=== PATIENT | female | born 1960 | race Caucasian/White ===

== ENCOUNTER → 2023-08-01 11:05 | Outpatient (REF) | payer BC, SELFPAY | LOC: HWWDC 11:05 | PROVIDERS: ATTENDING PHYSICIAN Obstetrics & Gynecology; FAMILY PHYSICIAN Family Medicine | DX: Z12.31 Encounter for screening mammogram for malignant neoplasm of breast (principal) | CPT/HCPCS: 77063; 77067 ==

== ENCOUNTER 2024-02-04 13:49 | Emergency (ER) | payer BC, SELFPAY ==
[2024-02-04 13:51] VITALS: BP 180/109
--- NOTE | 2024-02-04 15:59 | ED.GENMED ---
History of Present Illness
General
Chief Complaint: Back Pain
Source: patient
Exam Limitations: none
Time Seen by Provider: 02/04/24 15:41
Nursing documentation reviewed up to this point in time: agreed with
History of Present Illness
History of Present Illness:
Patient to ED with complaint of back pain. States she was pulling something heavy today and then twisted. She has a history of back pain with numbness and tingling to her right arm. Follows with chiropractor and PCP. She was evaluated by
neurologist and MRI was recommended. She is scheduled for MRI on Monday. Currently participating in PT with good results. States since incident this AM she is in severe pain. Tearful, tense on exam. Reports pain radiates down entire back and
across to chest. No weakness in extremities. Brought to ED by spouse for eval. She did not take anything for pain, states she does not take pain meds at home.
Past History
Past History
ED Past Medical History: HTN and Hypothyroidism
Social History
Tobacco: Non-smoker
Alcohol: Occasional
Personal:
Living: with family
Review of Systems
Review of Systems
Allergies reviewed?: Yes
All Other Systems: ROS reviewed and negative except as documented in HPI and ROS
Constitutional: Reports no symptoms
EENT: Reports no symptoms
Respiratory: Reports no symptoms
Cardiac: Reports no symptoms
ABD/GI: Reports no symptoms
: Reports no symptoms
Musculoskeletal: Reports back pain (entire back)
Skin: Reports no symptoms
Neurological: Reports numbness (RUE. Has had in past, improved with PT, worse today after pulling heavy object.)
Psychiatric: Reports no symptoms
Phy Exam
General Physical Exam
General Presentation: well appearing and moderate distress
General age: appears stated age
General Skin: warm
General Habitus: normal
Neurological Exam
Neurological Exam: alert, oriented x3, CN II-XII intact, no motor deficits, no sensory deficits and speech normal
Reflexes
Reflexes: +3: Left patellar and +3: Right patellar
Musculoskeletal Exam
Musculoskeletal Exam: neuro vasc intact and other (limited ROM to mid and lower back due to pain)
Skin Exam
Skin Exam: normal color, warm/dry and no rash
Psychiatric Exam
Psychiatric Exam: normal mood/affect
Course
Orders/Labs/Results
Orders:
Orders
02/04/24 15:58
Ketorolac [Toradol] 15 mg IV NOW STA
diazePAM [Valium Injection] 2 mg IV NOW STA
02/04/24 16:20
Diazepam [Valium] 2 mg PO NOW STA
02/04/24 16:59
Lumbar Spine Complete, 4 View [CR Lumbar Spine Comp Min 4 Vw*] Urgent
Comment:
Reason For Exam: pain
Thoracic Spine 3 Views CR [CR Thoracic Spine 3 Views] Urgent
Comment:
Reason For Exam: pain
02/04/24 17:55
Acetaminophen [Tylenol] 1,000 mg .ROUTE .STK-MED ONE
02/04/24 17:57
Acetaminophen [Tylenol] 1,000 mg PO NOW STA
02/04/24 18:23
Cyclobenzaprine HCl [Flexeril] 10 mg .ROUTE .STK-MED ONE
02/04/24 18:25
Cyclobenzaprine HCl [Flexeril] 10 mg PO NOW STA
Vital Signs
Initial and Last Documented VS:
Initial Vital Signs
Temp Pulse Resp BP Pulse Ox
98.1 F 91 16 180/109 97
02/04/24 13:51 02/04/24 13:51 02/04/24 13:51 02/04/24 13:51 02/04/24 13:51
Last Documented Vital Signs
Temp Pulse Resp BP Pulse Ox
98.1 F 91 16 180/109 97
02/04/24 13:51 02/04/24 13:51 02/04/24 13:51 02/04/24 13:51 02/04/24 13:51
*Radiology
Radiology exam reviewed: radiology read reviewed
*Pulse Oximetry
Patient hypoxic: no
*Critical Care Note
Total Time (30-74mins, 75-104mins- exclusive of procedures): Not Applicable
ED Attending Note
-
Portions of this chart may have been created with voice recognition software.� Occasional wrong word or��sound alike� substitutions may have occurred due to the inherent limitations of voice recognition software.
Discharge Plan
Departure
Patient Disposition: Home (Routine Discharge)
Date of Disposition: 02/04/24
Time of Disposition: 17:54
Patient with high blood pressure during this ER visit?: No
Condition: Good
Covid-19: Not Applicable
Discharge Problem:
Strain of thoracic back region, Lumbar strain
Instructions: Low Back Pain (DC), Upper Back Pain (DC), Using Cold for Pain
Prescriptions:
New
cyclobenzaprine 10 mg tablet
10 mg PO TID PRN (Reason: muscle spasm) Qty: 12 0RF
No Action
thyroid (pork) [[place] Thyroid] 60 MG tablet
PO Daily
Referrals:
Perry Welch, DO [Family Provider] -
Interventions
Interventions:
*Risk Screen - Suicide Last Done: 02/04/24 16:33
*General Assessment Last Done: 02/04/24 16:33
*Neglect/Abuse Screening Last Done: 02/04/24 16:33
ED- Fall Risk Assessment Last Done: 02/04/24 16:30
*ED COVID-19 Vaccine History Last Done: 02/04/24 16:33
*Nursing Disposition Last Done: 02/04/24 18:37
ED-Musculoskeletal Assessment Last Done: 02/04/24 16:30
Discharge Date and Time
Discharge Date/Time: 02/04/24 18:38
Print Language: SIER[place] LEONEAN
Musculoskeletal Injury Exam
Musculoskeletal Injury Exam
Bilateral Middle Back:
Pain with Movement?: Moderate
Tender to palpation?: Moderate
Soft tissue swelling?: None
External deformity and angulation?: None
Joint effusion?: None
Contusion?: None
Hematoma-local bleeding into tissue?: None
Strain- Sprain- Tear (Connective tissue injury)?: Moderate
Crepitus with movement?: No
Joint instability?: No
Malalignment/deformity?: No
Range of motion: Limited
Distal skin color and temperature: normal-warm & good color
Capillary Refill: normal
Normal distal neurovascular exam?: Yes
Bilateral Lower Back:
Pain with Movement?: Moderate
Tender to palpation?: Mild
Soft tissue swelling?: None
External deformity and angulation?: None
Joint effusion?: None
Contusion?: None
Hematoma-local bleeding into tissue?: None
Strain- Sprain- Tear (Connective tissue injury)?: Moderate
Crepitus with movement?: No
Joint instability?: No
Malalignment/deformity?: No
Range of motion: Limited
Distal skin color and temperature: normal-warm & good color
Capillary Refill: normal
Normal distal neurovascular exam?: Yes
[2024-02-04] MEDS: VALIUM 2 MG PO (16:26)
[2024-02-04 16:34] VITALS: BMI 31.1
[2024-02-04] MEDS: TYLENOL 1000 MG PO (17:57)
[2024-02-04] MEDS: FLEXERIL 10 MG PO (18:25)
== END 2024-02-04 18:38 | disposition home or self-care (01) ==
LOC: EMR 13:49
PROVIDERS: EMERGENCY PHYSICIAN Emergency Medicine; FAMILY PHYSICIAN Family Medicine
DX: M54.50 Low back pain, unspecified (principal)
CPT/HCPCS: 99283; 72072; 72110

== ENCOUNTER → 2024-02-07 17:30 | Outpatient (REF) | payer BC, SELFPAY | LOC: PAVMRI 17:30 | PROVIDERS: ATTENDING PHYSICIAN Specialist; FAMILY PHYSICIAN Family Medicine | DX: M54.12 Radiculopathy, cervical region (principal) | CPT/HCPCS: 72141 ==

== ENCOUNTER → 2024-02-10 11:42 | Outpatient (REF) | payer BC, SELFPAY | LOC: MRI 3T 11:42 | PROVIDERS: ATTENDING PHYSICIAN Physician Assistant Medical; FAMILY PHYSICIAN Family Medicine | DX: M54.16 Radiculopathy, lumbar region (principal); R53.1 Weakness | CPT/HCPCS: 72148 ==

== ENCOUNTER → 2024-02-18 10:47 | Outpatient (REF) | payer BC, SELFPAY | LOC: MRI 3T 10:47 | PROVIDERS: ATTENDING PHYSICIAN Physician Assistant Medical; FAMILY PHYSICIAN Family Medicine | DX: M25.562 Pain in left knee (principal) | CPT/HCPCS: 73721 ==

== ENCOUNTER 2024-06-22 20:10 | Emergency (ER) | payer BC, SELFPAY ==
[2024-06-22 20:15] VITALS: BP 191/105
[2024-06-22] MEDS: BENADRYL 50 MG PO (20:19)
[2024-06-22 23:45] VITALS: BMI 32.0
[2024-06-23] VITALS: BP 163/88
--- NOTE | 2024-06-23 00:52 | ED.GENMED ---
History of Present Illness
General
Chief Complaint: Allergic Reaction
Source: patient
Exam Limitations: none
Time Seen by Provider: 06/23/24 00:36
History of Present Illness
History of Present Illness:
See MDM
Past History
Past History
ED Past Medical History: HTN and Hypothyroidism
Social History
Tobacco: Non-smoker
Alcohol: Occasional
Personal:
Living: with family
Phy Exam
Physical Exam
Physical Exam:
See MDM
Course
Orders/Labs/Results
Orders:
Orders
06/22/24 20:15
Diphenhydramine [Benadryl] 50 mg .ROUTE .STK-MED ONE
06/22/24 20:19
Diphenhydramine [Benadryl] 50 mg PO NOW STA
06/23/24 00:51
Electrocardiogram (*1) Urgent
Reason for Study: Chest Pain
EKG- Treatment ONCE
0.9% Sodium Chloride 1000 ml [Nss] 1,000 ml IV BOLUS
Lorazepam [Ativan] 0.5 mg IV NOW STA
06/23/24 00:52
CR Chest - 2 Views Urgent
Comment:
Reason For Exam: left side chest pain, cough
06/23/24 01:38
Complete Blood Count/With Diff Urgent
Comprehensive Metabolic Panel Urgent
Urinalysis Reflex To Culture Urgent
Date Specimen was Collected: 06/23/24
Time Specimen was Collected: 01:31
Urine Microscopic Reflex Cult Urgent
Abnormal Lab Results
06/23/24
01:38
WBC 4.2 L 10^3/uL
(4.8-10.8)
Sodium 132 L mmol/L
(135-145)
Chloride 94 L mmol/L
(98-107)
BUN 5 L mg/dl
(7-17)
Glucose 100 H mg/dl
(70-99)
Total Bilirubin 1.6 H mg/dl
(0.2-1.3)
ALT 87 H U/L
(0-35)
Urine Ketones 1+ A
(Negative)
Leukocyte Esterase Rfl Trace A
(Negative)
Urine Bacteria (Reflex) Few A
(Negative)
06/23/24 01:38
06/23/24 01:38
Vital Signs
Initial and Last Documented VS:
Initial Vital Signs
Temp Pulse Resp BP Pulse Ox
98.2 F 80 19 191/105 100
06/22/24 20:15 06/22/24 20:15 06/22/24 20:15 06/22/24 20:15 06/22/24 20:15
Last Documented Vital Signs
Temp Pulse Resp BP Pulse Ox
98.2 F 71 17 169/90 98
06/22/24 20:15 06/23/24 02:00 06/23/24 02:00 06/23/24 01:00 06/23/24 01:15
MDM/Problems Addressed
Differential Diagnosis Includes:
HPI and MDM Narrative:
63-year-old female presenting with concern for allergic reaction. Patient has had a mild cough. She went to urgent care and was placed on steroids and antibiotics. Patient developed anxiety and restlessness and she went to [place] emergency
department. She was told to stop the steroids. She was given Pepcid and told to continue antibiotics. Symptoms did not improve so went back to urgent care and they switched the antibiotics.
Patient presents with multiple complaints. She thinks her glands are swollen and she has persistent cough and dry mouth and increased urination.
On exam, patient is anxious. She does have dry mucous membranes. Her family is at bedside. I discussed that she likely has a viral infection does not need antibiotics in the first place. Will obtain chest x-ray given her cough. She states her
COVID, flu and strep test were negative. Will give dose of Ativan for anxiety. Patient does admit that she feels anxious. Given her chest discomfort, will obtain EKG. Given her dry mouth, will give IV fluids.
Physical exam
General: Well appearing and non-toxic
HEENT: protecting airway. Dry mucous membranes
Neck: supple. No anterior or posterior cervical lymphadenopathy noted
CV: No evidence of cyanosis
Resp: No accessory muscle use. Lungs clear
Abd: Non-distended
Extremities: No deformities
Neuro: alert
Psych: Anxious
Skin: Intact
Problems Addressed including Acute and Chronic Conditions affecting care:
1. Cough
Acuity: acute
Prognosis: stable
Details: Likely viral. Will obtain chest x-ray
2. Anxiety
Acuity: acute
Prognosis: stable
Details: Will give dose of Ativan
3. Dehydration
Acuity: acute
Prognosis: stable
Details: Will give IV fluid
Updates
Chest x-ray clear. Blood work shows some evidence of dehydration. On reevaluation, patient feeling much better and feels comfortable going home
Differential Diagnosis (but not limited to): Anxiety, adverse medication reaction, viral syndrome
Testing considered: Troponin but symptoms appear to be inconsistent with ACS
Drug therapy (if applicable): OTC meds, please see d/c instruction regarding Rx drugs
Amount and/or Complexity of Data Reviewed
Clinical info obtained from: Patient
External data reviewed: N/A
Labs I independently reviewed (but not limited to): Mildly low sodium and chloride
Radiology: X-ray independently reviewed: Chest x-ray clear
Pulse Ox: not hypoxic
EKG independently reviewed: N/A
University Relations Director: N/A
Critical Care: N/A
Risk of Complication:
Social Determinants of health: Good social support
Discussed with other providers: N/A
Escalation of Care includes Admit/Obs: After being observed in the Emergency Department, pt stable for discharge.
Occasional wrong word or 'sound a like' substitutions may have occurred due to the inherent limitations of voice recognition software. Read the chart carefully and recognize, using context, where substitutions have occurred.
*Critical Care Note
Total Time (30-74mins, 75-104mins- exclusive of procedures): Not Applicable
ED Attending Note
-
Portions of this chart may have been created with voice recognition software.� Occasional wrong word or��sound alike� substitutions may have occurred due to the inherent limitations of voice recognition software.
Discharge Plan
Departure
Patient Disposition: Home (Routine Discharge)
Date of Disposition: 06/23/24
Time of Disposition: 05:06
Patient with high blood pressure during this ER visit?: Yes
Discharge Problem:
Adverse drug reaction
Instructions: Adverse Drug Reactions, Adult (DC), BLOOD PRESSURE
Prescriptions:
No Action
thyroid (pork) [[place] Thyroid] 60 MG tablet
PO Daily
cyclobenzaprine 10 mg tablet
10 mg PO TID PRN (Reason: muscle spasm) Qty: 12 0RF
Referrals:
Perry Welch DO [Family Provider] -
Activity Restrictions/Additional Instructions:
Please return for any worsening symptoms.
You may return at any time if you have further concerns.
Please follow up with your doctor at the first available appointment, preferably this week.
As we discussed, the chest x-ray does not show evidence of pneumonia.
Thank you for choosing [facility].
Interventions
Interventions:
*Risk Screen - Suicide Last Done: 06/22/24 20:15
*General Assessment Last Done: 06/22/24 23:45
*Neglect/Abuse Screening Last Done: 06/22/24 20:15
ED- Fall Risk Assessment Last Done: 06/22/24 23:45
*ED COVID-19 Vaccine History Last Done: 06/22/24 23:45
ED- Cardiac Assessment Last Done: 06/22/24 23:45
ED- Pulmonary Assessment Last Done: 06/22/24 23:45
ED-Skin Assessment Last Done: 06/22/24 23:45
Discharge Date and Time
Print Language: ERITREAN
[2024-06-23 01:00] VITALS: BP 169/90
[2024-06-23] MEDS: ATIVAN 0.5 MG IV (01:34)
[2024-06-23] MEDS: NSS 1000 IV (01:35)
[2024-06-23 01:47] LABS: % Basophils 0.5 % (0-2); % Eosinophils 1.2 % (0-6); % Immature Granulocytes 0.2 % (0-0.5); % Lymphocytes 39.9 % (20.5-51.1); % Monocytes 7.1 % (1.7-9.3); % Neutrophils 51.1 % (42.2-75.2); Absolute Eosinophils 0.1 10^3/uL (0-0.7); Absolute Lymphocytes 1.7 10^3/uL (1.2-3.4); Absolute Monocytes 0.3 10^3/uL (0.1-0.6); Absolute Neutrophils 2.2 10^3/uL (1.4-6.5); Hematocrit 38.8 % (37.0-47.0); Hemoglobin 13.7 g/dL (12.0-16.0); Mean Corp Hgb Conc. 35.3 g/dL (33.0-37.0); Mean Platelet Volume 9.2 fL (7.4-10.4); Nucleated Red Blood Cells % 0 %; Platelet Count 245 10^3/uL (130-400); Red Blood Cell Count 4.73 10^6/uL (4.20-5.40); Red Cell Dist. Width 11.5 % (11.5-14.5); White Blood Cell Count 4.2 10^3/uL (4.8-10.8)
[2024-06-23 01:53] LABS: Urine Albumin Negative (Neg - Trace); Urine Bilirubin Negative (Negative); Urine Character Clear (Clear); Urine Color Yellow; Urine Glucose Negative (Negative); Urine Ketone 1+ (Negative); Urine Leukocyte Trace (Negative); Urine Nitrite Negative (Negative); Urine Occult Blood Negative (Negative); Urine Specific Gravity 1.005 (<1.030); Urine Urobilinogen Negative (Neg - 1+)
[2024-06-23 02:01] LABS: ALT (SGPT) 87 U/L (0-35); AST (SGOT) 34 U/L (14-36); Albumin 4.5 g/dl (3.5-5.0); Alkaline Phosphatase 119 U/L (38-126); Blood Urea Nitrogen 5 mg/dl (7-17); Calcium 9.2 mg/dl (8.4-10.2); Carbon Dioxide 27 mmol/L (22-30); Chloride 94 mmol/L (98-107); Estimated Creatinine Clearance 96 ml/min; Glucose 100 mg/dl (70-99); Potassium 3.6 mmol/L (3.5-5.1); Sodium 132 mmol/L (135-145); Total Bilirubin 1.6 mg/dl (0.2-1.3); Total Protein 6.9 g/dl (6.3-8.2); eGFR > 60.00
[2024-06-23 02:03] LABS: Urine Bacteria Few (Negative); Urine Red Blood Cell 0-2 /HPF (0-2)
[2024-06-23 04:39] VITALS: BP 158/94
[2024-06-23 05:00] VITALS: BP 149/85
== END 2024-06-23 05:47 | disposition home or self-care (01) ==
LOC: EMR 20:10
PROVIDERS: EMERGENCY PHYSICIAN Student in an Organized Health Care Education/Training Program; FAMILY PHYSICIAN Family Medicine
DX: R05.9 Cough, unspecified (principal); F41.9 Anxiety disorder, unspecified; R07.89 Other chest pain; R68.2 Dry mouth, unspecified; R45.1 Restlessness and agitation; T50.905A Adverse effect of unspecified drugs, medicaments and biological substances, initial encounter; E86.0 Dehydration; I10 Essential (primary) hypertension; E03.9 Hypothyroidism, unspecified; Z88.1 Allergy status to other antibiotic agents; Z88.3 Allergy status to other anti-infective agents; Z91.040 Latex allergy status; Z88.8 Allergy status to other drugs, medicaments and biological substances; Z91.018 Allergy to other foods
CPT/HCPCS: 99284; 96374; 71046; 80053; 81003; 81015; 85025; 93005

== ENCOUNTER 2024-07-15 14:00 | Emergency (ER) | payer BC, SELFPAY ==
[2024-07-15 14:36] VITALS: BP 169/97
--- NOTE | 2024-07-15 14:42 | ED.GENMED ---
ED Provider Triage
<Cortez Quinones PA-C - Last Filed: 07/15/24 14:44>
-
Patient seen by provider in Triage?: Seen in Triage
Attestation: A medical screening examination has been initiated by a qualified medical provider. Based on the assessment performed at this time, it has been determined that an emergent medical condition may exist and the patient has been informed
that further medical evaluation and possible additional diagnostic testing may be needed.
HPI: 63-year-old female presents with lightheadedness and dizziness onset today. This was after seeing a chiropractor. Manipulations were performed on her lower back. She denies neck pain. She denies any headache. Does note an unsteady
sensation.
EKG through triage shows sinus rhythm with PVCs she is hypertensive at triage. Will start workup with basic labs and CT of head
GENERAL: Alert , in no apparent distress
EYE: No visual abnormalities.
NECK: Trachea midline
ENT: No visible abnormalities.
LUNGS: No acute respiratory distress
NEUROLOGICAL: Alert and oriented
SKIN: Skin intact. No visible changes.
MUSCULOSKELETAL: Moving extremities normally
PSYCH: Normal and appropriate interaction.
This is a medical evaluation conducted in person to initiate diagnostic evaluation and provide initial therapeutics. Please see further documentation by the treating clinician.
History of Present Illness
<Cortez Quinones PA-C - Last Filed: 07/15/24 14:44>
General
Chief Complaint: Dizziness
Time Seen by Provider: 07/15/24 18:18
<Jhon Coelho MD - Last Filed: 07/18/24 05:52>
General
Source: patient
Exam Limitations: none
History of Present Illness
History of Present Illness:
63-year-old female complaining of disequilibrium lightheadedness started after chiropractic manipulation earlier today. She is get manipulation for neck spasms TMJ issues TMJ spasms. All starting last January. No unusual headache no visual issues
no double vision no numbness tingling or weakness.
Past History
<Cortez Quinones PA-C - Last Filed: 07/15/24 14:44>
Past History
ED Past Medical History: HTN and Hypothyroidism
Social History
Tobacco: Non-smoker
Alcohol: Occasional
Personal:
Living: with family
Review of Systems
<Jhon Coelho MD - Last Filed: 07/18/24 05:52>
Review of Systems
All Other Systems: Not applicable
Constitutional: Denies fever or chills
Respiratory: Reports no symptoms
Cardiac: Reports no symptoms
ABD/GI: Reports no symptoms
Phy Exam
<Jhon Coelho MD - Last Filed: 07/18/24 05:52>
Physical Exam
Physical Exam:
GENERAL: Alert and oriented in no apparent distress
EYE: Orbits normal. Extraocular muscles intact
NECK: Supple, no carotid bruit
ENT: Pharynx without erythema
CARDIAC: Regular rate and rhythm without any obvious murmurs.
LUNGS: Clear breath sounds,normal
ABDOMEN: Soft, without focal tenderness or distention
NEUROLOGICAL: Alert and oriented , cranial nerves II through XII intact. Speech normal. Eappnr-[id number]-pbap normal. No drift. Gait normal. Negative Romberg.
SKIN: Warm and dry, no rash or lesion, no discoloration, skin intact.
MUSCULOSKELETAL: No edema,no deformity.Good color
PSYCH: Normal and appropriate interaction.
Course
<Cortez Quinones PA-C - Last Filed: 07/15/24 14:44>
Orders/Labs/Results
Orders:
Orders
07/15/24 14:04
Electrocardiogram (*1) Urgent
Reason for Study: Vertigo / Dizzy
EKG- Treatment ONCE
07/15/24 14:43
CT Head W/o Iv Contrast Urgent
Comment:
Reason For Exam: dizzy
07/15/24 14:49
Complete Blood Count/With Diff Urgent
Comprehensive Metabolic Panel Urgent
07/15/24 18:33
CT Head & Neck Angio W/wo IV Urgent
Comment:
Reason For Exam: Neck pain disequilibrium/chiropractic manipulation
IV Insert/Care/Rem.- Treatment PRN
0.9% Sodium Chloride 500 ml [Nss] 500 ml IV BOLUS
Abnormal Lab Results
07/15/24
14:49
WBC 4.0 L 10^3/uL
(4.8-10.8)
Absolute Lymphs (auto) 0.7 L 10^3/uL
(1.2-3.4)
Lymphocytes % 17.7 L %
(20.5-51.1)
Glucose 114 H mg/dl
(70-99)
ALT 49 H U/L
(0-35)
Alkaline Phosphatase 143 H U/L
(38-126)
07/15/24 14:49
07/15/24 14:49
Vital Signs
Initial and Last Documented VS:
Initial Vital Signs
Temp Pulse Resp BP Pulse Ox
98.2 F 81 16 169/97 98
07/15/24 14:36 07/15/24 14:36 07/15/24 14:36 07/15/24 14:36 07/15/24 14:36
Last Documented Vital Signs
Temp Pulse Resp BP Pulse Ox
98.2 F 72 18 172/93 100
07/15/24 14:36 07/15/24 20:41 07/15/24 20:41 07/15/24 20:41 07/15/24 17:25
<Jhon Coelho MD - Last Filed: 07/18/24 05:52>
Orders/Labs/Results
Orders:
Orders
07/15/24 14:04
Electrocardiogram (*1) Urgent
Reason for Study: Vertigo / Dizzy
EKG- Treatment ONCE
07/15/24 14:43
CT Head W/o Iv Contrast Urgent
Comment:
Reason For Exam: dizzy
07/15/24 14:49
Complete Blood Count/With Diff Urgent
Comprehensive Metabolic Panel Urgent
07/15/24 18:33
CT Head & Neck Angio W/wo IV Urgent
Comment:
Reason For Exam: Neck pain disequilibrium/chiropractic manipulation
IV Insert/Care/Rem.- Treatment PRN
0.9% Sodium Chloride 500 ml [Nss] 500 ml IV BOLUS
Abnormal Lab Results
07/15/24
14:49
WBC 4.0 L 10^3/uL
(4.8-10.8)
Absolute Lymphs (auto) 0.7 L 10^3/uL
(1.2-3.4)
Lymphocytes % 17.7 L %
(20.5-51.1)
Glucose 114 H mg/dl
(70-99)
ALT 49 H U/L
(0-35)
Alkaline Phosphatase 143 H U/L
(38-126)
07/15/24 14:49
07/15/24 14:49
Vital Signs
Initial and Last Documented VS:
Initial Vital Signs
Temp Pulse Resp BP Pulse Ox
98.2 F 81 16 169/97 98
07/15/24 14:36 07/15/24 14:36 07/15/24 14:36 07/15/24 14:36 07/15/24 14:36
Last Documented Vital Signs
Temp Pulse Resp BP Pulse Ox
98.2 F 72 18 172/93 100
07/15/24 14:36 07/15/24 20:41 07/15/24 20:41 07/15/24 20:41 07/15/24 17:25
<Jhon Coelho MD - Last Filed: 07/18/24 05:52>
MDM/Problems Addressed
Differential Diagnosis Includes:
Patient describing relatively sudden onset of disequilibrium and gait issues after chiropractic manipulation. Neurologic exam is normal. TMs are clear. Gait is normal. Negative Romberg. However based on the history patient warrants CT
angiography to rule out dissection. If negative symptomatic treatment and follow-up
<Jhon Coelho MD - Last Filed: 07/18/24 05:52>
*Pulse Oximetry
Patient hypoxic: no
*EKG
Interpreted by ED Provider?: Yes
Interpretation: abnormal
Comparison EKG: changes noted
Heart Rate: 88
Rate: normal
Rhythm: sinus and PVC's
[place]: normal axis
Interval: normal interval
QRS Pattern: normal QRS
Ischemia: no ischemia
*Critical Care Note
Total Time (30-74mins, 75-104mins- exclusive of procedures): Not Applicable
Data Reviewed
Review of Other/Old Records Reveals: Labs, Records and Testing
ED Attending Note
<Cortez Quinones PA-C - Last Filed: 07/15/24 14:44>
-
Portions of this chart may have been created with voice recognition software.� Occasional wrong word or��sound alike� substitutions may have occurred due to the inherent limitations of voice recognition software.
Discharge Plan
Departure
Patient Disposition: Home (Routine Discharge)
Date of Disposition: 07/15/24
Time of Disposition: 22:03
Patient with high blood pressure during this ER visit?: Yes
Discharge Problem:
Dizziness/disequilibrium
Instructions: Dizziness, Nonvertigo, (DC), BLOOD PRESSURE
Prescriptions:
No Action
thyroid (pork) [[place] Thyroid] 60 MG tablet
PO Daily
cyclobenzaprine 10 mg tablet
10 mg PO TID PRN (Reason: muscle spasm) Qty: 12 0RF
Referrals:
Perry Welch, [Family Provider] - Follow up in 2-3 days
Interventions
Interventions:
*Risk Screen - Suicide Last Done: 07/15/24 14:36
*General Assessment Last Done: 07/15/24 18:37
*Neglect/Abuse Screening Last Done: 07/15/24 14:36
*ED COVID-19 Vaccine History Last Done: 07/15/24 18:37
*Nursing Disposition Last Done: 07/15/24 22:10
ED- Neurological Assessment Last Done: 07/15/24 18:55
ED Swallowing Screen Last Done: 07/15/24 18:55
Discharge Date and Time
Discharge Date/Time: 07/15/24 22:11
Print Language: ARMENIAN
[2024-07-15 15:06] LABS: % Basophils 0.2 % (0-2); % Immature Granulocytes 0.5 % (0-0.5); % Lymphocytes 17.7 % (20.5-51.1); % Monocytes 8.2 % (1.7-9.3); % Neutrophils 72.4 % (42.2-75.2); Absolute Lymphocytes 0.7 10^3/uL (1.2-3.4); Absolute Monocytes 0.3 10^3/uL (0.1-0.6); Absolute Neutrophils 2.9 10^3/uL (1.4-6.5); Hematocrit 39.4 % (37.0-47.0); Hemoglobin 13.3 g/dL (12.0-16.0); Mean Corp Hgb Conc. 33.8 g/dL (33.0-37.0); Mean Corpuscular Hgb 28.6 pg (27.0-31.0); Mean Corpuscular Volume 84.7 fL (81.0-99.0); Mean Platelet Volume 10.1 fL (7.4-10.4); Nucleated Red Blood Cells % 0 %; Platelet Count 239 10^3/uL (130-400); Red Blood Cell Count 4.65 10^6/uL (4.20-5.40); Red Cell Dist. Width 12.5 % (11.5-14.5)
[2024-07-15 15:16] LABS: ALT (SGPT) 49 U/L (0-35); AST (SGOT) 24 U/L (14-36); Albumin 4.8 g/dl (3.5-5.0); Alkaline Phosphatase 143 U/L (38-126); Blood Urea Nitrogen 11 mg/dl (7-17); Calcium 9.8 mg/dl (8.4-10.2); Carbon Dioxide 25 mmol/L (22-30); Chloride 100 mmol/L (98-107); Glucose 114 mg/dl (70-99); Potassium 3.9 mmol/L (3.5-5.1); Sodium 135 mmol/L (135-145); Total Bilirubin 1.1 mg/dl (0.2-1.3); eGFR > 60.00
[2024-07-15 17:25] VITALS: BP 163/98
[2024-07-15 18:36] VITALS: BMI 31.1
[2024-07-15] MEDS: NSS 500 IV (18:49)
[2024-07-15 18:54] VITALS: BP 180/93
[2024-07-15 20:41] VITALS: BP 172/93
== END 2024-07-15 22:11 | disposition home or self-care (01) ==
LOC: EMR 14:00
PROVIDERS: Physician Assistant; EMERGENCY PHYSICIAN Emergency Medicine; FAMILY PHYSICIAN Family Medicine
DX: R42 Dizziness and giddiness (principal); E03.9 Hypothyroidism, unspecified; I10 Essential (primary) hypertension
CPT/HCPCS: 99284; 96360; 70450; 70496; 70498; 80053; 85025; 93005; Q9967

== ENCOUNTER → 2024-08-20 11:52 | Outpatient (REF) | payer BC, SELFPAY | LOC: PAVMRI 11:52 | PROVIDERS: ATTENDING PHYSICIAN Physician Assistant Medical; FAMILY PHYSICIAN Family Medicine | DX: M25.561 Pain in right knee (principal) | CPT/HCPCS: 73721 ==

== ENCOUNTER → 2024-10-24 08:50 | Outpatient (REF) | payer BC, SELFPAY | LOC: MRI 08:50 | PROVIDERS: ATTENDING PHYSICIAN Physician Assistant Medical; FAMILY PHYSICIAN Family Medicine | DX: M54.16 Radiculopathy, lumbar region (principal) | CPT/HCPCS: 72148 ==

== ENCOUNTER → 2024-10-25 09:43 | Outpatient (REF) | payer BC, SELFPAY | LOC: MRI 09:43 | PROVIDERS: ATTENDING PHYSICIAN Physician Assistant Medical; FAMILY PHYSICIAN Family Medicine | DX: M76.891 Other specified enthesopathies of right lower limb, excluding foot (principal); M76.892 Other specified enthesopathies of left lower limb, excluding foot | CPT/HCPCS: 73721 ==

== ENCOUNTER 2024-11-15 19:30 | Emergency (ER) | payer BC, SELFPAY ==
[2024-11-15 19:32] VITALS: BP 167/107
[2024-11-15 21:14] VITALS: BP 158/92
--- NOTE | 2024-11-15 21:45 | ED.GENMED ---
History of Present Illness
General
Chief Complaint: Medication Reaction
Source: patient and spouse
Exam Limitations: none
Time Seen by Provider: 11/15/24 21:00
Nursing documentation reviewed up to this point in time: agreed with
History of Present Illness
History of Present Illness:
64-year-old female presents emergency department due to a rash on the side of her face that occurs after taking Augmentin. It goes away within 30 minutes. She denies any discomfort at this time.
Past History
Past History
ED Past Medical History: HTN and Hypothyroidism
Social History
Tobacco: Non-smoker
Alcohol: Occasional
Personal:
Living: with family
Review of Systems
Review of Systems
Allergies reviewed?: Yes
All Other Systems: Not applicable
Constitutional: Reports no symptoms
EENT: Reports no symptoms
Respiratory: Reports no symptoms
Cardiac: Reports no symptoms
ABD/GI: Reports no symptoms
: Reports no symptoms
Musculoskeletal: Reports no symptoms
Skin: Reports rash
Neurological: Reports no symptoms
Endocrine: Reports no symptoms
Hematologic/Lymphatic: Reports no symptoms
Psychiatric: Reports no symptoms
Phy Exam
Physical Exam
Physical Exam:
Physical Exam
General: no apparent distress, not acutely ill
Neck: supple. no meningeal signs. normal posterior pharynx
Heart: s1/s2 regular rate and rhythm, no murmur. equal radial
pulses.
HEENT: Pupils equal round reactive to light, EOMI, dental Rear molars
Lungs: no acute respiratory distress. clear bilaterally
Abdomen: normal bowel sounds. not tender. no CVAT
Neuro: alert and oriented. no focal neurological deficits cranial nerves II through XII intact
Skin: no rash
Psychiatric: well kept. interactive and cooperative
Extremities: no edema. no calf tenderness. negative homans. good distal pulses
Course
Orders/Labs/Results
Orders:
Orders
11/15/24 21:47
Clindamycin HCl [Cleocin] 600 mg PO NOW STA
Vital Signs
Initial and Last Documented VS:
Initial Vital Signs
Temp Pulse Resp BP Pulse Ox
98.3 F 91 18 167/107 98
11/15/24 19:32 11/15/24 19:32 11/15/24 19:32 11/15/24 19:32 11/15/24 19:32
Last Documented Vital Signs
Temp Pulse Resp BP Pulse Ox
98.3 F 73 17 158/92 99
11/15/24 19:32 11/15/24 21:14 11/15/24 21:14 11/15/24 21:14 11/15/24 21:14
MDM/Problems Addressed
Differential Diagnosis Includes:
Dental abscess, allergic reaction
MDM/Problems Addressed:
62-year-old female with dental caries, and possible dental infection and possible reaction to Augmentin. Will change Augmentin to clindamycin and follow-up with dentist next week. Return precautions given.
*Pulse Oximetry
Patient hypoxic: no
*Critical Care Note
Total Time (30-74mins, 75-104mins- exclusive of procedures): Not Applicable
Data Reviewed
Further Testing Considered But Not Given:
CT face not indicated
Patient Management
Social determinants of health affecting care: Living situation and Strong social support
Escalation/DeEscalation of care consider admission/obs:
Admit not indicated
ED Attending Note
-
Portions of this chart may have been created with voice recognition software.� Occasional wrong word or��sound alike� substitutions may have occurred due to the inherent limitations of voice recognition software.
Discharge Plan
Departure
Patient Disposition: Home (Routine Discharge)
Date of Disposition: 11/15/24
Time of Disposition: 21:48
Patient with high blood pressure during this ER visit?: Yes
Condition: Good
Discharge Problem:
Medication reaction, Dental infection
Instructions: Drug allergy, Adverse Drug Reactions, Adult ED, BLOOD PRESSURE
Prescriptions:
New
clindamycin HCl [Cleocin HCl] 150 mg capsule
450 mg PO TID Qty: 45 0RF
No Action
thyroid (pork) [[place] Thyroid] 60 MG tablet
PO Daily
cyclobenzaprine 10 mg tablet
10 mg PO TID PRN (Reason: muscle spasm) Qty: 12 0RF
Activity Restrictions/Additional Instructions:
Follow up with your dentist on Monday, and primary care in 1-2 weeks. Return for any concerns.
Interventions
Interventions:
*Risk Screen - Suicide Last Done: 11/15/24 19:32
*General Assessment Last Done: 11/15/24 19:32
*Neglect/Abuse Screening Last Done: 11/15/24 19:32
*ED- Fall Risk Assessment Last Done: 11/15/24 21:03
*ED COVID-19 Vaccine History Last Done: 11/15/24 19:32
ED-Skin Assessment Last Done: 11/15/24 20:58
ED- Pulmonary Assessment Last Done: 11/15/24 20:58
ED-EENT Assessment Last Done: 11/15/24 20:58
Discharge Date and Time
Print Language: K[place]
[2024-11-15] MEDS: CLEOCIN 600 MG PO (21:57)
== END 2024-11-15 21:59 | disposition home or self-care (01) ==
LOC: EMR 19:30
PROVIDERS: EMERGENCY PHYSICIAN Emergency Medicine; FAMILY PHYSICIAN Family Medicine
DX: K04.7 Periapical abscess without sinus (principal); T50.905A Adverse effect of unspecified drugs, medicaments and biological substances, initial encounter; Y92.9 Unspecified place or not applicable; I10 Essential (primary) hypertension; E03.9 Hypothyroidism, unspecified; K02.9 Dental caries, unspecified
CPT/HCPCS: 99283; 93005

== ENCOUNTER → 2024-12-03 10:38 | Outpatient (REF) | payer BC, SELFPAY | LOC: WDC 10:38 | PROVIDERS: ATTENDING PHYSICIAN Obstetrics & Gynecology; FAMILY PHYSICIAN Family Medicine | DX: N64.4 Mastodynia (principal) | CPT/HCPCS: 76642; 77062; 77066 ==

== ENCOUNTER → 2024-12-28 12:06 | Outpatient (REF) | payer BC, SELFPAY | LOC: MRI 3T 12:06 | PROVIDERS: ATTENDING PHYSICIAN Podiatrist; FAMILY PHYSICIAN Family Medicine | DX: G57.81 Other specified mononeuropathies of right lower limb (principal) | CPT/HCPCS: 73718 ==

== ENCOUNTER 2025-01-16 18:49 | Emergency (ER) | payer BC, SELFPAY ==
[2025-01-16 18:51] VITALS: BP 179/96
[2025-01-16 19:59] VITALS: BMI 28.4
[2025-01-16 20:01] VITALS: BP 156/85
--- NOTE | 2025-01-16 20:03 | ED.GENMED ---
History of Present Illness
General
Chief Complaint: Abdominal Symptoms
Source: patient and spouse
Exam Limitations: none
Time Seen by Provider: 01/16/25 19:26
Nursing documentation reviewed up to this point in time: agreed with
History of Present Illness
History of Present Illness:
64-year-old female 8 weeks ago finished some clindamycin for dental infection developed loose stools talk to oral surgeon PCP started on probiotics stools have normalized, she keeps a record daily, no loose stools but did develop hemorrhoids, which
increased in size, called her GI she has appointment see Dr. Cedeno in February last colonoscopy was sometime ago she has no pain, no blood, she is concerned about the size of the hemorrhoids
She was using aloe wipes Tucks and homeopathic hemorrhoid cream she is concerned that you have a bowel movement and the hemorrhoids were large
Past History
Past History
ED Past Medical History: HTN and Hypothyroidism
Social History
Tobacco: Non-smoker
Alcohol: Occasional
Drug: None
Personal:
Living: with family
Employment: Employed
Review of Systems
Review of Systems
All Other Systems: Not applicable
Constitutional: Denies fever or fatigue
EENT: Reports no symptoms
Respiratory: Reports no symptoms
ABD/GI: Reports no symptoms; Denies abdominal pain, nausea, diarrhea or constipated
: Reports no symptoms
Phy Exam
Physical Exam
Physical Exam:
Physical Exam
General: no apparent distress, not acutely ill
Neck: No jaundice
Heart: s1/s2 regular rate and rhythm, no murmur. equal radial pulses.
Lungs: no acute respiratory distress. clear bilaterally
Abdomen: Nontender
Rectal small hemorrhoid at 12 and 6:00 slightly nodular area around 6:00 which is nontender
Neuro: alert and oriented. no focal neurological deficits
Skin: no rash
Psychiatric: well kept. interactive and cooperative
Extremities: no edema.
Course
Vital Signs
Initial and Last Documented VS:
Initial Vital Signs
Temp Pulse Resp BP Pulse Ox
97.8 F 80 20 179/96 99
01/16/25 18:51 01/16/25 18:51 01/16/25 18:51 01/16/25 18:51 01/16/25 18:51
Last Documented Vital Signs
Temp Pulse Resp BP Pulse Ox
97.8 F 79 18 156/85 100
01/16/25 18:51 01/16/25 20:02 01/16/25 20:02 01/16/25 20:01 01/16/25 20:05
MDM/Problems Addressed
Differential Diagnosis Includes:
Hemorrhoids, rectal abscess, conceivably malignancy or mass doubt C. difficile by history physical passes formed stool
MDM/Problems Addressed:
Increase size of hemorrhoids
*Pulse Oximetry
SaO2: 100
Oxygen Mode of Delivery: Room air
Patient hypoxic: no
*Critical Care Note
Total Time (30-74mins, 75-104mins- exclusive of procedures): Not Applicable
Update Note
Update Note:
Update, minimal external hemorrhoids, preference that she had internal which pushed out and then relapsed, will place on stool softener steroid cream colorectal follow-up nonurgently
ED Attending Note
-
Portions of this chart may have been created with voice recognition software.� Occasional wrong word or��sound alike� substitutions may have occurred due to the inherent limitations of voice recognition software.
Discharge Plan
Departure
Patient Disposition: Home (Routine Discharge)
Date of Disposition: 01/16/25
Time of Disposition: 20:23
Patient with high blood pressure during this ER visit?: No
Condition: Good
Discharge Problem:
Acute hemorrhoid
Prescriptions:
New
polyethylene glycol 3350 [Miralax] 17 gram/dose powder
4 g PO DAILY PRN (Reason: Constipation) Qty: 476 0RF
hydrocortisone [Anusol-HC] 2.5 % cream with perineal applicator
1 applic ID DAILY PRN (Reason: hemorrhoids) Qty: 30 0RF
No Action
thyroid (pork) [[place] Thyroid] 60 MG tablet
PO Daily
cyclobenzaprine 10 mg tablet
10 mg PO TID PRN (Reason: muscle spasm) Qty: 12 0RF
clindamycin HCl [Cleocin HCl] 150 mg capsule
450 mg PO TID Qty: 45 0RF
Referrals:
Perry Welch DO [Family Provider, Family Practice]
Hernando Ayers MD [Active, ColoRectal] - Next open appointment
Activity Restrictions/Additional Instructions:
Keep your appointment with Dr. Cedeno
Call [facility] colorectal surgery to discuss your symptoms
Start MiraLAX daily as needed to keep your stools soft
Anusol daily as needed for hemorrhoidal swelling or pain
Interventions
Interventions:
*Risk Screen - Suicide Last Done: 01/16/25 18:57
*General Assessment Last Done: 01/16/25 18:57
*Neglect/Abuse Screening Last Done: 01/16/25 18:57
*ED- Fall Risk Assessment Last Done: 01/16/25 19:57
*ED COVID-19 Vaccine History Last Done: 01/16/25 19:57
JO-Juppjp-Yiyymvuvkr Assessment Last Done: 01/16/25 19:57
Discharge Date and Time
Print Language: SRI LANKAN
== END 2025-01-16 21:01 | disposition home or self-care (01) ==
LOC: EMR 18:49
PROVIDERS: EMERGENCY PHYSICIAN Emergency Medicine; FAMILY PHYSICIAN Family Medicine
DX: K64.4 Residual hemorrhoidal skin tags (principal); K59.00 Constipation, unspecified; F41.9 Anxiety disorder, unspecified; E03.9 Hypothyroidism, unspecified; I10 Essential (primary) hypertension; Z88.1 Allergy status to other antibiotic agents; Z88.3 Allergy status to other anti-infective agents; Z91.040 Latex allergy status; Z88.8 Allergy status to other drugs, medicaments and biological substances; Z91.018 Allergy to other foods
CPT/HCPCS: 99283

== ENCOUNTER → 2025-05-21 12:50 | Outpatient (REF) | payer BC, SELFPAY | LOC: HWRAD 12:50 | PROVIDERS: ATTENDING PHYSICIAN Obstetrics & Gynecology; FAMILY PHYSICIAN Family Medicine | DX: R35.0 Frequency of micturition (principal) | CPT/HCPCS: 76770; 76830; 76856 ==